=== PATIENT | female | born 1950 | race Caucasian/White ===

== ENCOUNTER 2022-07-01 13:30 | Inpatient (IN) | payer MEDICARE ==
[2022-07-06] MEDS ORDERED: fentaNYL Citrate/PF 100 MCG/2 ML SYRINGE ONE (06:09)
[2022-07-06] MEDS ORDERED: Vancomycin 1 GM/200 ML BAG ONE (06:12)
[2022-07-06] MEDS ORDERED: Sodium Chloride 0.9% 100 ML ONE ×2 (06:12→06:57)
[2022-07-06] MEDS ORDERED: Tranexamic Acid 1,000 MG/10 ML VIAL ONE (06:12)
[2022-07-06] MEDS ORDERED: Bupivacaine PF 0.5% 30 ML VIAL ONE (06:19)
[2022-07-06] MEDS ORDERED: EPINEPHrine 1 MG/ML AMP ONE (06:19)
[2022-07-06] MEDS ORDERED: Ondansetron HCl/PF 4 MG/2 ML Vial IVP PRN (06:43)
[2022-07-06] MEDS ORDERED: HYDROmorphone 2 MG/ML VIAL SLOW IVP PRN (06:43)
[2022-07-06] MEDS ORDERED: Promethazine HCl 25 MG/ML VIAL IM PRN ×3 (06:43→11:00)
[2022-07-06] MEDS ORDERED: Promethazine HCl 25 MG/ML VIAL IVPB PRN (06:43)
[2022-07-06] MEDS ORDERED: Meperidine HCl/PF 25 MG/ML VIAL SLOW IVP PRN ×2 (06:43)
[2022-07-06] MEDS ORDERED: Fentanyl 100 MCG/2 ML VIAL ONE ×2 (06:45→09:51)
[2022-07-06] MEDS ORDERED: Lidocaine 1% PF 5 ML VIAL ONE ×2 (06:45→06:55)
[2022-07-06] MEDS ORDERED: Midazolam HCl 2 mg/2 ml Vial ONE (06:45)
[2022-07-06] MEDS ORDERED: Acetaminophen 325 MG TAB PO PRN (06:54)
[2022-07-06] MEDS ORDERED: Ondansetron PF 4 MG/2 ML Vial IVP PRN ×2 (06:54→11:00)
[2022-07-06] MEDS ORDERED: Zolpidem Tartrate 5 MG TAB PO PRN ×2 (06:54→11:00)
[2022-07-06] MEDS ORDERED: Fentanyl 100 MCG/2 ML VIAL SLOW IVP PRN ×2 (06:54)
[2022-07-06] MEDS ORDERED: diphenhydrAMINE 25 MG CAP PO PRN (06:54)
[2022-07-06] MEDS ORDERED: ePHEDrine 50 MG/ML VIAL ONE (06:55)
[2022-07-06] MEDS ORDERED: Bupivacaine HCl 0.5%/Epinephrine 1:200,000/PF 30 ml Vial ONE (06:55)
[2022-07-06] MEDS ORDERED: Ondansetron PF 4 MG/2 ML Vial ONE (06:55)
[2022-07-06] MEDS ORDERED: Dexamethasone 20 MG/5 ML VIAL ONE (06:55)
[2022-07-06] MEDS ORDERED: PROPOFOL 200 MG/20 ML VIAL ONE (06:55)
[2022-07-06] MEDS ORDERED: CEFAZOLIN 2 GM VIAL ONE (06:57)
[2022-07-06] MEDS ORDERED: oxyCODONE/Acetaminophen 5 mg/325 mg Tablet PO PRN ×2 (06:58)
[2022-07-06] MEDS ORDERED: ceFAZolin 2 GM/Dextrose 50 ML 2 GM in Premix Bag 1 BAG IVPB SCH (07:00)
[2022-07-06] MEDS ORDERED: CHONDROIT SULF A EA EYE SCH ×2 (09:00)
[2022-07-06] MEDS ORDERED: AZILSARTAN MED DT SCH (09:00)
[2022-07-06] MEDS ORDERED: CHLORTHALIDONE PO SCH (09:00)
[2022-07-06] MEDS ORDERED: CHLORTHALIDONE DT SCH (09:00)
[2022-07-06] MEDS ORDERED: [UNRECOGNIZED DRUG - OTHER] PO SCH (09:00)
[2022-07-06] MEDS ORDERED: TABLE PO SCH (09:00)
[2022-07-06] MEDS ORDERED: AZILSARTAN MED PO SCH (09:00)
[2022-07-06] MEDS ORDERED: Non-Formulary Item 1 EACH (Omeprazole [Omeprazole] 20 MG Capsule.Dr) PO SCH (09:00)
[2022-07-06] MEDS ORDERED: CYCLOSPORINE EA EYE SCH ×2 (09:00)
[2022-07-06] MEDS ORDERED: [UNRECOGNIZED DRUG - OTHER] EA EYE SCH (09:00)
[2022-07-06] MEDS ORDERED: Ergocalciferol 1.25 MG(50,000 UNITS) CAP PO SCH ×2 (09:00)
[2022-07-06] MEDS ORDERED: [UNRECOGNIZED DRUG - OTHER] EA EYE SCH (09:00)
[2022-07-06] MEDS ORDERED: Non-Formulary Item 1 EACH (Levothyroxine Sodium [Levothyroxine] 75 MCG Capsule) PO SCH (09:00)
[2022-07-06] MEDS ORDERED: traMADol HCl 50 MG TAB PO PRN ×2 (11:00)
[2022-07-06] MEDS ORDERED: Ropivacaine 0.2% 550 ML 550 ML NERVE BLCK SCH (11:00)
[2022-07-06] MEDS ORDERED: oxyCODONE 5 MG TAB PO PRN (11:01)
[2022-07-06] MEDS: Calcitriol 0.25 MCG CAP PO SCH (12:24)
[2022-07-06] MEDS: Allopurinol 100 MG TAB PO SCH (12:24)
[2022-07-06] MEDS: Estradiol 1 MG TAB PO SCH (12:24)
[2022-07-06] MEDS: Ferrous Gluconate 324 MG TAB PO SCH ×2 (12:24→21:08)
[2022-07-06] MEDS: Aspirin 81 mg Enteric Coated Tablet PO SCH ×2 (12:24→21:08)
[2022-07-06] MEDS: Bupropion 150 MG XL TAB PO SCH (12:24)
[2022-07-06] MEDS: Multivitamin W/ Minerals 1 TAB PO SCH (12:24)
[2022-07-06] MEDS: Senokot S 8.6-50 MG TAB PO SCH ×2 (12:25→21:07)
[2022-07-06] MEDS: Acetaminophen 500 MG TAB PO SCH ×2 (13:34→17:22)
[2022-07-06] MEDS: Sodium Chloride 0.9% 1,000 ML IV SCH ×2 (13:34→17:20)
[2022-07-06] MEDS: CEFAZOLIN 2 GM in Sodium Chloride 0.9% 100 ML IVPB SCH ×2 (13:34→21:10)
[2022-07-06 13:51] VITALS: BMI 29.1
[2022-07-06] MEDS: oxyCODONE 5 MG TAB PO PRN (17:22)
[2022-07-06] MEDS: Fentanyl 100 MCG/2 ML VIAL IV PRN ×2 (17:26→20:35)
[2022-07-06] MEDS ORDERED: Vancomycin 1 GM in Premix Bag 1 BAG IVPB SCH (18:00)
[2022-07-06] MEDS ORDERED: Non-Formulary Item 1 EACH (Tizanidine Hcl [Tizanidine Hcl] 4 MG Capsule) PO SCH (21:00)
[2022-07-06] MEDS ORDERED: Pravastatin Sodium 20 MG TAB PO SCH (21:00)
[2022-07-06] MEDS ORDERED: Non-Formulary Item 1 EACH (Latanoprost/Pf [Latanoprost 0.005% Eye Drop] 7.5 ML Drops) EA EYE SCH (21:00)
[2022-07-06] MEDS ORDERED: Non-Formulary Item 1 EACH (Melatonin [Melatonin] 10 MG Capsule) PO SCH (21:00)
[2022-07-06] MEDS ORDERED: TEMAZEPAM 30 MG PO SCH (21:00)
[2022-07-06] MEDS: Temazepam 15 MG CAP PO SCH (21:07)
[2022-07-06] MEDS: Melatonin 3 MG TAB PO SCH (21:08)
[2022-07-06] MEDS: Simvastatin 10 MG TAB PO SCH (21:08)
[2022-07-06] MEDS: tiZANidine HCl 4 MG TAB PO SCH ×2 (21:08→21:14)
[2022-07-06] MEDS: Latanoprost 0.005% Ophth Soln 2.5 ml Bottle EA EYE SCH (21:09)
[2022-07-07] MEDS: oxyCODONE 5 MG TAB PO PRN ×3 (00:03→08:27)
[2022-07-07] MEDS: Acetaminophen 500 MG TAB PO SCH ×2 (00:04→06:21)
[2022-07-07] MEDS: Fentanyl 100 MCG/2 ML VIAL IV PRN ×2 (00:55→06:42)
[2022-07-07] MEDS: Sodium Chloride 0.9% 1,000 ML IV SCH ×2 (03:52→19:16)
[2022-07-07 05:26] LABS: Hemoglobin 11.5 g/dL (12.0-16.0); Mean Corpuscular HGB CONC 32.2 g/dL (32.0-36.0); Mean Corpuscular Hemoglobin 32.8 pg (27.0-31.0); Mean Platelet Volume 7.2 fL (7.4-10.4); Platelet Count 209 thou/uL (130-400); RBC Distribution Width 13.8 % (11.5-14.5); Red Blood Cell (RBC) Count 3.49 mill/uL (4.20-5.40); White Blood Cell (WBC) Count 10.2 thou/uL (4.8-10.8)
[2022-07-07] MEDS: Levothyroxine Sodium 75 MCG TAB PO SCH (06:22)
[2022-07-07] MEDS: Losartan 25 MG TAB PO SCH (08:24)
[2022-07-07] MEDS: Chlorthalidone 25 MG TAB PO SCH (08:25)
[2022-07-07] MEDS: Estradiol 1 MG TAB PO SCH (08:29)
[2022-07-07] MEDS: Senokot S 8.6-50 MG TAB PO SCH ×2 (08:29→20:48)
[2022-07-07] MEDS: Allopurinol 100 MG TAB PO SCH (08:29)
[2022-07-07] MEDS: Multivitamin W/ Minerals 1 TAB PO SCH (08:30)
[2022-07-07] MEDS: Ferrous Gluconate 324 MG TAB PO SCH ×2 (08:30→20:51)
[2022-07-07] MEDS: Bupropion 150 MG XL TAB PO SCH (08:30)
[2022-07-07] MEDS: Calcitriol 0.25 MCG CAP PO SCH (08:30)
[2022-07-07] MEDS: Fentanyl CADD 100 ML IVPB SCH (11:43)
[2022-07-07] MEDS: HYDROcodone/Acetaminophen 10/325 mg Tablet PO SCH ×2 (13:34→20:50)
[2022-07-07] MEDS: Temazepam 15 MG CAP PO SCH (20:49)
[2022-07-07] MEDS: Latanoprost 0.005% Ophth Soln 2.5 ml Bottle EA EYE SCH (20:50)
[2022-07-07] MEDS: tiZANidine HCl 4 MG TAB PO SCH (20:51)
[2022-07-07] MEDS: Aspirin Chewable 81 MG TAB PO SCH (20:51)
[2022-07-07] MEDS: Simvastatin 10 MG TAB PO SCH (20:51)
[2022-07-07] MEDS: Melatonin 3 MG TAB PO SCH (20:51)
[2022-07-08] MEDS: Sodium Chloride 0.9% 1,000 ML IV SCH ×3 (06:53→21:40)
[2022-07-08] MEDS: Chlorthalidone 25 MG TAB PO SCH (08:51)
[2022-07-08] MEDS: Senokot S 8.6-50 MG TAB PO SCH ×2 (08:52→21:21)
[2022-07-08] MEDS: Bupropion 150 MG XL TAB PO SCH (08:53)
[2022-07-08] MEDS: Allopurinol 100 MG TAB PO SCH (08:53)
[2022-07-08] MEDS: Ferrous Gluconate 324 MG TAB PO SCH ×2 (08:55→21:23)
[2022-07-08] MEDS: Multivitamin W/ Minerals 1 TAB PO SCH (08:55)
[2022-07-08] MEDS: Estradiol 1 MG TAB PO SCH (08:55)
[2022-07-08] MEDS: Levothyroxine Sodium 75 MCG TAB PO SCH (08:56)
[2022-07-08] MEDS: Losartan 25 MG TAB PO SCH ×2 (08:57→09:06)
[2022-07-08] MEDS: HYDROcodone/Acetaminophen 10/325 mg Tablet PO SCH ×3 (08:57→21:22)
[2022-07-08] MEDS: Fentanyl CADD 100 ML IVPB SCH (10:43)
[2022-07-08] MEDS: Melatonin 3 MG TAB PO SCH (21:22)
[2022-07-08] MEDS: Simvastatin 10 MG TAB PO SCH (21:23)
[2022-07-08] MEDS: tiZANidine HCl 4 MG TAB PO SCH (21:24)
[2022-07-08] MEDS: Temazepam 15 MG CAP PO SCH (21:24)
[2022-07-08] MEDS: Latanoprost 0.005% Ophth Soln 2.5 ml Bottle EA EYE SCH (21:24)
[2022-07-08] MEDS: Aspirin Chewable 81 MG TAB PO SCH (21:24)
[2022-07-09] MEDS: Levothyroxine Sodium 75 MCG TAB PO SCH (05:47)
[2022-07-09] MEDS: Sodium Chloride 0.9% 1,000 ML IV SCH ×2 (05:49→15:28)
[2022-07-09] MEDS: Calcitriol 0.25 MCG CAP PO SCH (09:18)
[2022-07-09] MEDS: Allopurinol 100 MG TAB PO SCH (09:18)
[2022-07-09] MEDS: Bupropion 150 MG XL TAB PO SCH (09:18)
[2022-07-09] MEDS: Estradiol 1 MG TAB PO SCH (09:19)
[2022-07-09] MEDS: Ferrous Gluconate 324 MG TAB PO SCH ×2 (09:19→21:08)
[2022-07-09] MEDS: Losartan 25 MG TAB PO SCH (09:19)
[2022-07-09] MEDS: Senokot S 8.6-50 MG TAB PO SCH ×2 (09:20→21:06)
[2022-07-09] MEDS: Multivitamin W/ Minerals 1 TAB PO SCH (09:20)
[2022-07-09] MEDS: HYDROcodone/Acetaminophen 10/325 mg Tablet PO SCH ×2 (09:21→15:31)
[2022-07-09] MEDS ORDERED: fentaNYL 50 mcg/hour Patch TD SCH (11:00)
[2022-07-09] MEDS: Chlorthalidone 25 MG TAB PO SCH (15:30)
[2022-07-09] MEDS: Aspirin Chewable 81 MG TAB PO SCH (21:06)
[2022-07-09] MEDS: Simvastatin 10 MG TAB PO SCH (21:06)
[2022-07-09] MEDS: HYDROcodone/Acetaminophen 10/325 mg Tablet PO PRN (21:07)
[2022-07-09] MEDS: Temazepam 15 MG CAP PO SCH (21:08)
[2022-07-09] MEDS: Melatonin 3 MG TAB PO SCH (21:08)
[2022-07-09] MEDS: Latanoprost 0.005% Ophth Soln 2.5 ml Bottle EA EYE SCH (21:11)
[2022-07-09] MEDS: tiZANidine HCl 4 MG TAB PO SCH (21:13)
[2022-07-10] MEDS: Sodium Chloride 0.9% 1,000 ML IV SCH (02:49)
[2022-07-10] MEDS: HYDROcodone/Acetaminophen 10/325 mg Tablet PO PRN ×2 (02:53→09:59)
[2022-07-10] MEDS: Levothyroxine Sodium 75 MCG TAB PO SCH (05:55)
[2022-07-10] MEDS: Allopurinol 100 MG TAB PO SCH (09:54)
[2022-07-10] MEDS: Estradiol 1 MG TAB PO SCH (09:54)
[2022-07-10] MEDS: Bupropion 150 MG XL TAB PO SCH (09:54)
[2022-07-10] MEDS: Ferrous Gluconate 324 MG TAB PO SCH (09:54)
[2022-07-10] MEDS: Multivitamin W/ Minerals 1 TAB PO SCH (09:54)
[2022-07-10] MEDS: Senokot S 8.6-50 MG TAB PO SCH (09:55)
[2022-07-10] MEDS: Losartan 25 MG TAB PO SCH (09:55)
[2022-07-10] MEDS: Chlorthalidone 25 MG TAB PO SCH (10:05)
[2022-07-10] MEDS: Aspirin Chewable 81 MG TAB PO SCH (10:05)
[2022-07-10 13:30] VITALS: BP 103/68; TEMP 98.2
== END 2022-07-10 15:15 | disposition home health service (06) | DRG 468 ==
LOC: SURG A 07-06 05:48 → SJJU 07-06 12:12
PROVIDERS: ADMIT Orthopaedic Surgery; ATTEND Orthopaedic Surgery
PROC: 0SPC0JZ Removal of Synthetic Substitute from Right Knee Joint, Open Approach (ICD-10-PCS; principal; 2022-07-06)
PROC: 0SRC0J9 Replacement of Right Knee Joint with Synthetic Substitute, Cemented, Open Approach (ICD-10-PCS; 2022-07-06)
PROC: 3E0T3BZ Introduction of Anesthetic Agent into Peripheral Nerves and Plexi, Percutaneous Approach (ICD-10-PCS; 2022-07-06)
DX: T84.022A Instability of internal right knee prosthesis, initial encounter (principal); Y83.1 Surgical operation with implant of artificial internal device as the cause of abnormal reaction of the patient, or of later complication, without mention of misadventure at the time of the procedure; Z20.822 Contact with and (suspected) exposure to COVID-19; I48.91 Unspecified atrial fibrillation; I10 Essential (primary) hypertension; Z87.11 Personal history of peptic ulcer disease; Z79.899 Other long term (current) drug therapy; Z79.1 Long term (current) use of non-steroidal anti-inflammatories (NSAID); Z90.49 Acquired absence of other specified parts of digestive tract; Z98.890 Other specified postprocedural states; Z90.722 Acquired absence of ovaries, bilateral; Z90.710 Acquired absence of both cervix and uterus; Z80.3 Family history of malignant neoplasm of breast; Z82.49 Family history of ischemic heart disease and other diseases of the circulatory system; Z88.1 Allergy status to other antibiotic agents; Z88.2 Allergy status to sulfonamides
CPT/HCPCS: 36415; 85027; A4306; C1713; C1776; J0171; J0690; J1100; J2250; J2405; J2550; J2704; J2795; J3010; J3370; J3490; J7050; S0020

== ENCOUNTER 2022-07-01 13:40 | Outpatient (CLI) | payer MEDICARE ==
[2022-07-01 14:39] LABS: #Eosinphils 0.1 10x3/uL (0.0-0.5); #Monocytes 0.5 10x3/uL (0.0-1.1); #Neutrophils 4.4 10x3/uL (1.5-8.4); %Basophils 0.5 % (0.0-2.0); %Eosinophils 0.8 % (0.0-6.0); %Lymphocytes 36.3 % (18.0-47.0); %Monocytes 6.6 % (0.0-10.0); %Neutrophils 55.5 % (40.0-75.0); Hemoglobin 13.9 g/dL (12.0-15.5); Mean Corpuscular HGB CONC 33.9 g/dL (32.0-36.0); Mean Corpuscular Hemoglobin 32.3 pg (27.0-33.0); Mean Corpuscular Volume 95.3 fl (81.6-98.3); Mean Platelet Volume 9.6 fl (7.4-10.4); Platelet Count 258 10x3/uL (150-450); RBC Distribution Width 14.4 % (11.5-14.5); White Blood Cell (WBC) Count 7.9 10x3/uL (3.5-10.5)
[2022-07-01 15:02] LABS: INR-International Normal Ratio 0.9; Prothrombin Time 9.5 sec (9.5-12.1)
[2022-07-01 15:07] LABS: Anion Gap 14 mmol/L (10-20); BUN (Urea Nitrogen) 45 mg/dL (9.8-20.1); Calc. Creatinine Clearance 0 mL/min (70-130); Calcium 10.6 mg/dL (7.8-10.44); Carbon Dioxide 22 mmol/L (23-31); Chloride 101 mmol/L (98-107); Estimated GFR 36; Glucose 92 mg/dL (80-115); Potassium 3.7 mmol/L (3.5-5.1); Sodium 133 mmol/L (136-145)
== END 2022-07-01 13:41 | disposition home or self-care (01) ==
LOC: LABBT 13:40
PROVIDERS: ATTEND Orthopaedic Surgery
DX: Z01.812 Encounter for preprocedural laboratory examination (principal); Z20.822 Contact with and (suspected) exposure to COVID-19
CPT/HCPCS: 80048; 85025; 85610; 87081; 87811